=== PATIENT | female | born 1950 | race Caucasian/White ===

== ENCOUNTER 2023-12-19 13:00 | Outpatient (RCR) | payer MEDICARE, BC, SELFPAY ==
--- NOTE | 2023-11-21 13:49 | PT.OPEX ---
PT [place] Outpatient Eval PT [facility] Outpatient Eval Start: 11/21/23 09:07 Freq: Status: Active Protocol: Document 11/21/23 09:07 MLS (Rec: 11/21/23 13:48 MLS [id number]) E-signed By Mackenzie Godfrey DPT Physical Therapy Outpatient Evaluation Insurance Information Recert Due Date 02/18/24 Insurance Name Medicare B,Blue Cross/Blue Shield Medical Diagnosis M19.011 Primary OA, right shoulder Treating Diagnosis Pain in right shoulder Decreased ROM right shoulder Referring MD Jorge Ritchie MD Subjective Subjective Patient is a 73 year old female who presents to physical therapy with signs and symptoms consistent with right shoulder pain. She reports that it started a long time ago and has been getting worse. She reports that she had xrays, which showed bone on bone. She reports that she feels it when she puts weight through her arm, in a slide plank when she does yoga. She reports that she does yoga 3- 4 times per week. She reports that she does knitting and needle point every day as well , which irritates her shoulder . She reports that she walks on the days she doesn't do yoga. Aggravating factors include: yoga, knitting, sleeping, putting her bra on and some ADLs. Alleviating factors include: Tylenol for arthritis and movement. She is right handed . Significant past medical history includes hypertension and arthritis. Patient would like to strengthen her shoulder through physical therapy sessions. 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 [employer] Preferred Name Edith Objective Other/Pertinent Objective CERVICAL ROM Grossly tested WNL SHOULDER AROM Left shoulder grossly tested WNL Right shoulder: Flexion: 150 Abduction: 100 Internal Rotation: 55 External Rotation: 45 NECK/SHOULDER MMT: Shoulder shrug: R 4/5 L 4/5 Shoulder flexion: R 4/5 L 4+/5 Shoulder abduction: R 4/5 L 4+ /5 Shoulder External Rotation: R 4/5 L 4+/5 Shoulder Internal Rotation: R 4/5 L 4+/5 Elbow flexion: R 4/5 L 4+/5 Elbow extension R 4/5 L 4+/5 SPECIAL TEST -Kathy Test: negative -Neer Test: negative -Josué Test: negative -Speeds test: negative -Yergasons test(biceps-arm at side elbow flexed): too -Empty can: positive -Lift off test: positive -Biceps Load test: negative Obriens test: negative [place]: Access Code: [email or web address] URL: [email or web address] Date: 11/21/2023 Prepared by: Mackenzie Godfrey Exercises: Educated on modifying yoga to side plank on elbow vs outstretched arm Hitchiker 3 x 10 - Circular Shoulder Pendulum with Table Support - 1 x daily - 7 x weekly - 3 sets - 10 reps - Standing Isometric Shoulder External Rotation with Doorway - 1 x daily - 7 x weekly - 3 sets - 10 reps - Seated Scapular Retraction - 1 x daily - 7 x weekly - 3 sets - 10 reps Functional Test Performed & Score 18 total score Quickdash Assessment Assessment/Impression Pt is a 73 year old female who presents with concerns of right shoulder pain. Patient also has notable objective findings including limited ROM and decreased strength which are also likely contributing to the problem. Patient is a good candidate for skilled therapy to target deficits described above. Skilled PT intervention is necessary for use of therapeutic exercise manual therapy, neuromuscular re-education, and therapeutic activity. Functional impairments include difficulty with reaching, sleeping, yoga , knitting, ADLs and exercising. See appropriate sections of PT eval for complete list of goals and POC . D/C plan and criteria is for pt to achieve the goals as listed below or until max rehab potential is met. Pt was agreeable with plan of care and goals established. Primary Functional Limitations reaching knitting yoga exercising ADLs sleeping Plan of Care Rehabilitation Potential Good Physical Therapy Goals Within 10-12 weeks: 1.Pt will demonstrate independence in performance of home exercise program with the use of video and/or handouts in order to optimize functional mobility and reduce risk for re-injury. 2.Pt will demonstrate consistent HEP compliance to ensure progress in reaching established goals during course of care. 3.Patient will be able to sit and knit for up to one hour without pain. 4.Patient will report pain levels <2/10 with all activities in order to improve functional mobility at home, work and during functional leisure activities. 5.Patient demonstrates the ability to perform her yoga routine without limitations. 6.Pt will exhibit 10% improvement on Quickdash measure to demonstrate functional improvement and progress towards goals. 7.Patient is able to sleep without waking more than one time due to pain in a 6-8 hour time frame. Coordination/Communication With Referral Source Treatment Plan/Direct Interventions Manual Therapy,Therapeutic Activities,Therapeutic Exercises Patient Will Be Discharged From Therapy Independently Progressing Evaluation Billing Untimed Code Treatment Minutes 30 Complexity Low Certification Information Physician Comment/Change : Physician NPI Number #
== END 2024-03-08 13:18 | disposition home or self-care (01) ==
PROVIDERS: PCP Family Medicine; Visit Provider Orthopaedic Surgery Sports Medicine
DX: M19.011 Primary osteoarthritis, right shoulder (principal); Z51.89 Encounter for other specified aftercare
CPT/HCPCS: 97110; 97140; 97161